=== PATIENT | female | born 1975 | race Caucasian/White ===

== ENCOUNTER → 2017-08-02 | Day surgery (SDC) | payer OTHER ==
[~2017-08-02] MED LIST: ACETAMINOPHEN 1000 MG/100 ML 100 ML IV ONE; MIDAZOLAM HCL 2 MG/2 ML VIAL ONE; ONDANSETRON HCL 4 MG/2 ML VIAL IV PUSH ONE; PROPOFOL 200 MG/20 ML AMP IV ONE; ceFAZolin 2 GM PREMIX 50 ML ONE
--- NOTE | 2017-08-02 12:45 | TN ---
cc: AMARA ENG MD DATE OF SURGERY: 08/02/2017 PREOPERATIVE DIAGNOSIS Right breast abnormal mammogram. POSTOPERATIVE DIAGNOSIS Right breast abnormal mammogram. PROCEDURE Needle-localized right breast biopsy. SURGEON Amara Eng MD [employer] TABLE ATTENDANT Staff. SPECIMENS REMOVED Right breast tissue with microcalcifications, short stitch anterior long posterior ESTIMATED BLOOD LOSS 10 ccs. ANESTHESIA General anesthesia. COMPLICATIONS None apparent. INDICATIONS This is a 41-year-old female who had underwent her initial screening mammogram when suspicious microcalcifications were noted in the upper posterior breast. These were not amenable to core needle biopsy due to the proximity to the chest wall and therefore after discussion with the patient we planned for needle localized excisional biopsy. PROCEDURE IN DETAIL The patient was taken to the operating room and placed in supine position. General anesthesia was induced. The right breast was prepped and draped in usual sterile fashion and a surgical time-out was performed to verify correct patient, procedure and site. The localization needle was in the upper mid right breast extending caudally. It was quite superior and therefore, I did make the incision in the upper breast about 3 cm. Dissection was carried out into the subcutaneous and then the breast tissue. Dissection was carried out with electrocautery and sharply towards the localization needle which was encountered. It was cut with the wire cutters and external portion removed. The tissue around the umesh of the localization needle was dissected free including posterior to the umesh towards the chest wall. This was then sent to radiology. Mammogram was performed and no microcalcifications were identified in the specimen. Therefore proceeded to assure hemostasis and closed the incision. Deep dermal 3-0 Vicryl sutures were placed and subcuticular 4-0 Monocryl as well as Dermabond. The patient tolerated the procedure well, was extubated and taken to PACU in stable condition. Amara Eng MD JPD/TLL /12:19 PM /12:32 PM MARYLOU
== END | disposition home or self-care (01) ==
LOC: ESDC 08:27
PROVIDERS: ATTEND Surgery
DX: N60.91 Unspecified benign mammary dysplasia of right breast (principal)
CPT/HCPCS: 00400; 19125; 88305; J0131; J0690; J2250; J2405; J3010